=== PATIENT | female | born 1960 | race Caucasian/White ===

== ENCOUNTER 2024-10-31 18:28 | Outpatient (OUT) | payer MEDICARE, MEDICAID, SELFPAY | END 2024-10-31 18:29 | disposition home or self-care (01) | PROVIDERS: PCP Family Medicine; Visit Provider Family Medicine | DX: M79.601 Pain in right arm (principal); Z78.9 Other specified health status; Z68.24 Body mass index [BMI] 24.0-24.9, adult; I10 Essential (primary) hypertension | CPT/HCPCS: 73060 ==